=== PATIENT | male | born 1955 | race American Indian/Alaskan Native ===

== ENCOUNTER 2016-09-02 20:22 | Observation (INO) | payer MEDICARE ==
--- NOTE | 2016-09-02 21:02 | ED PDOC ---
Arrival/HPI - General Chief Complaint: Dizziness/Lightheaded Time Seen by Provider: 09/02/16 20:32 Historian: Patient - History of Present Illness Narrative History of Present Illness (Text): 09/02/16 20:58 Derek Lucas is a 61 year old male, whose past medical history includes hypertension, hyperlipidemia, cerebral aneurysm s/p surgery, and HIV, who presents to the ED complaining of dizziness today. Patient also with associated unsteady gait and near syncopal at times. Patient recently visiting from [place] and states he ran out of his blood pressure medication. Patient states he regularly takes Lisinopril and Carvedilol but does not know of any of the doses. Patient denies any headache, vision changes, chest pain, shortness of breath, abdominal pain, nausea, vomiting, diarrhea, back pain, neck pain, or any other complaints. Time/Duration: Other (today) Symptom Onset: Gradual Symptom Course: Unchanged Activities at Onset: Rest, Light Context: Home Past Medical History - Provider Review Nursing Documentation Reviewed: Yes - Infectious Disease Hx of Infectious Diseases: None - Cardiac Hx Hypertension: Yes Hx Internal Defibrillator: Yes - Pulmonary Hx Respiratory Disorders: No - Neurological Hx Neurological Disorder: No Other/Comment: anurysm on the head. - HEENT Hx HEENT Disorder: Yes (eye glasses) - Renal Hx Renal Disorder: No - Endocrine/Metabolic Hx Diabetes Mellitus Type 2: Yes - Integumentary Hx Dermatological Disorder: No - Musculoskeletal/Rheumatological Hx Musculoskeletal Disorders: No - Gastrointestinal Hx Gastroesophageal Reflux: Yes - Genitourinary/Gynecological Hx Genitourinary Disorders: No - Psychiatric Hx Psychophysiologic Disorder: No Hx Substance Use: No - Surgical History Other/Comment: defibrilator - Anesthesia Hx Anesthesia: No Hx Anesthesia Reactions: No Hx Malignant Hyperthermia: No Family/Social History - Physician Review Nursing Documentation Reviewed: Yes Family/Social History: No Known Family HX Smoking Status: Never Smoked Hx Alcohol Use: No Hx Substance Use: No Allergies/Home Meds Allergies/Adverse Reactions: Allergies No Known Allergies Allergy (Verified 09/02/16 20:29) Review of Systems - Physician Review All systems were reviewed & negative as marked: Yes - Review of Systems Constitutional: Normal. absent: Fevers Eyes: Normal ENT: Normal Respiratory: Normal. absent: SOB, Cough Cardiovascular: Normal. absent: Chest Pain Gastrointestinal: Normal. absent: Abdominal Pain, Diarrhea, Nausea, Vomiting Genitourinary Male: Normal. absent: Dysuria, Frequency, Hematuria, Urinary Output Changes Musculoskeletal: Normal. absent: Back Pain, Neck Pain Skin: Normal. absent: Rash Neurological: Dizziness, Gait Changes (+unsteady gait), Other (+near-syncope). absent: Headache Endocrine: Normal Hemo/Lymphatic: Normal Psychiatric: Normal Physical Exam Vital Signs Reviewed: Yes Vital Signs Temp Pulse Resp BP Pulse Ox 09/02/16 23:27 77 156/108 H 09/02/16 22:48 156/108 H 09/02/16 21:28 70 169/104 H 09/02/16 21:27 74 169/104 H 09/02/16 20:51 98.8 F 82 20 163/104 H 100 09/02/16 20:41 98 F 79 17 163/104 H 100 Temperature: Afebrile Blood Pressure: Hypertensive Pulse: Regular Respiratory Rate: Normal Appearance: Positive for: Well-Appearing, Non-Toxic, Comfortable Pain Distress: None Mental Status: Positive for: Alert and Oriented X 3 Finger Stick Blood Glucose: 95 - Systems Exam Head: Present: Atraumatic, Normocephalic Pupils: Present: PERRL Extroacular Muscles: Present: EOMI Conjunctiva: Present: Normal Mouth: Present: Moist Mucous Membranes Neck: Present: Normal Range of Motion Respiratory/Chest: Present: Clear to Auscultation, Good Air Exchange, Other ( Left anterior chest wall defibrillator). No: Respiratory Distress, Accessory Muscle Use Cardiovascular: Present: Regular Rate and Rhythm, Normal S1, S2. No: Murmurs Abdomen: Present: Normal Bowel Sounds. No: Tenderness, Distention, Peritoneal Signs Back: Present: Normal Inspection Upper Extremity: Present: Normal Inspection. No: Cyanosis, Edema Lower Extremity: Present: Normal Inspection. No: Edema Neurological: Present: GCS=15, CN II-XII Intact, Speech Normal, Motor Func Grossly Intact, Normal Sensory Function, Other (Slow mentation at times) Skin: Present: Warm, Dry, Normal Color. No: Rashes Psychiatric: Present: Alert, Oriented x 3, Normal Insight, Normal Concentration Medical Decision Making ED Course and Treatment: 09/02/16 20:58 Impression: 61 y/o male c/o dizziness, unsteady gait, and near-syncope today. Plan: -- CT Head w/o contrast -- EKG -- Chest X-ray -- Labs, cardiac enzymes -- Coreg -- Carvedilol -- Reassess and disposition Progress Notes: Reviewed EKG, NSR at 75 bpm. 1st degree AV block. Occasional PVC. Non-specific ST/T wave changes. 09/02/16 22:22 Reviewed radiology, CXR shows no active disease. CT Head shows: No acute findings. 09/02/16 23:[address] Foley, covering for Dr. Ibarra, who requests pt go to hospitalist service. 09/03/16 00:[address] Richardson, who is aware and agrees with plan. Accepts pt in to hospitalist service. Pt will go to Telemetry observation for near-syncope and intractable dizziness. vice president payment notified. Pt is no acute distress. Discussed results and hospital observation plan with pt and family, who is aware and verbalizes understanding. - Lab Interpretations Lab Results: 09/02/16 20:44 09/02/16 20:44 Lab Results 09/02/16 20:44: WBC 5.0, RBC 4.52, Hgb 14.3, Hct 41.3 L, MCV 91.4, MCH 31.6, MCHC 34.6, RDW 15.4 H, Plt Count 129, MPV 11.6 H, PT 12.4 H, INR 1.15 H, APTT 29.2, Sodium 138, Potassium 3.7, Chloride 102, Carbon Dioxide 22, Anion Gap 18, BUN 8, Creatinine 0.7, Est GFR ( Amer) > 60, Est GFR (Non-Af Amer) > 60, Random Glucose 116 H, Calcium 9.3, Total Bilirubin 1.2, AST 44, ALT 28, Alkaline Phosphatase 81, Lactate Dehydrogenase 568, Total Creatine Kinase 165, Troponin I 0.01, Total Protein 9.8 H, Albumin 4.3, Globulin 5.5, Albumin/ Globulin Ratio 0.8 L I have reviewed the lab results: Yes - RAD Interpretation Narrative RAD Interpretations (Text): CXR shows no active disease. CT Head shows: Aneurysm coil left suprasellar cistern producing artifact. Encephalomalacia left frontal lobe. Atrophy and chronic small vessel ischemic disease. No intracranial hemorrhage. No intracranial edema. No evidence of acute infarct. The sinuses and mastoid air cells are clear. IMPRESSION: No acute findings. Radiology Orders: 09/02/16 21:08 HEAD W/O CONTRAST [CT] Stat CHEST PORTABLE [RAD] Stat Land Conservation Specialist: ED Physician, Radiologist - EKG Interpretation EKG Interpretation (Text): EKG: Ordered, reviewed, and independently interpreted the EKG. Rate : 75 BPM Rhythm : NSR Interpretation : 1st degree AV block. Occasional PVC. Non-specific ST/T wave changes. Comparison : No previous EKG for comparison. Interpreted by ED Physician: Yes Type: 12 lead EKG - Medication Orders Current Medication Orders: Discontinued Medications Carvedilol (Coreg) 6.25 mg PO STAT STA Stop: 09/02/16 21:10 Last Admin: 09/02/16 21:27 Dose: 6.25 MG MAR Pulse and Blood Pressure Document 09/02/16 21:27 [facility] (Rec: 09/02/16 21:28 [place] [id number]) Pulse Pulse Rate (60-90 beats/min) 74 Blood Pressure Blood Pressure (100/60-150/90 mm Hg) 169/104 Clonidine HCl (Catapres) 0.1 mg PO STAT STA Stop: 09/02/16 23:08 Last Admin: 09/02/16 23:27 Dose: 0.1 MG MAR Pulse and Blood Pressure Document 09/02/16 23:27 [facility] (Rec: 09/02/16 23:27 [place] [id number]) Pulse Pulse Rate (60-90 beats/min) 77 Blood Pressure Blood Pressure (100/60-150/90 mm Hg) 156/108 Lisinopril (Zestril) 5 mg PO STAT STA Stop: 09/02/16 21:10 Last Admin: 09/02/16 21:28 Dose: 5 MG MAR Pulse and Blood Pressure Document 09/02/16 21:28 [facility] (Rec: 09/02/16 21:28 [place] [id number]) Pulse Pulse Rate (60-90 beats/min) 70 Blood Pressure Blood Pressure (100/60-150/90 mm Hg) 169/104 - Scribe Statement The provider has reviewed the documentation as recorded by the Leeannibcaroline Heaton Provider Attestation: All medical record entries made by the Scribe were at my direction and personally dictated by me. I have reviewed the chart and agree that the record accurately reflects my personal performance of the history, physical exam, medical decision making, and the department course for this patient. I have also personally directed, reviewed, and agree with the discharge instructions and disposition Disposition/Present on Arrival - Present on Arrival Any Indicators Present on Arrival: No History of DVT/PE: No History of Uncontrolled Diabetes: No Urinary Catheter: No History of Decub. Ulcer: No History Surgical Site Infection Following: None - Disposition Have Diagnosis and Disposition been Completed?: Yes Diagnosis: Pre-syncope, Dizziness Disposition: HOSPITALIZED Disposition Time: 00:48 Patient Plan: Observation Condition: STABLE
[2016-09-02 21:31] LABS: HEMATOCRIT 41.3 % (42.0-52.0); MEAN CELL VOLUME 91.4 fL (80.0-105.0); MEAN CORPUSCULAR HEMOGLOBIN 31.6 pg (25.0-35.0); MEAN CORPUSCULAR HGB CONC 34.6 g/dl (31.0-37.0); MEAN PLATELET VOLUME 11.6 fl (7.0-11.0); RED CELL DISTRIBUTION WIDTH 15.4 % (11.5-14.5)
[2016-09-02 21:38] LABS: ALB/GLOB RATIO 0.8 (1.1-1.8); ALKALINE PHOSPHATASE 81 U/L (38-133); ALT/SGPT 28 U/L (7-56); AST/SGOT 44 U/L (15-59); BILIRUBIN,TOTAL 1.2 mg/dL (0.2-1.3); BLOOD UREA NITROGEN 8 mg/dL (7-21); CALCIUM 9.3 mg/dL (8.4-10.5); CARBON DIOXIDE 22 mmol/L (21-33); CHLORIDE 102 mmol/L (98-107); GFR AFRICAN-AMERICAN > 60; GLUCOSE,RANDOM 116 mg/dL (70-110); POTASSIUM 3.7 mmol/L (3.6-5.0); SODIUM 138 mmol/L (132-148); TOTAL PROTEIN 9.8 g/dL (5.8-8.3)
[2016-09-02 21:44] LABS: INR 1.15 (0.93-1.08); PARTIAL THROMBOPLASTIN TIME 29.2 Seconds (23.7-30.8)
[2016-09-02 21:57] LABS: TROPONIN I 0.01 ng/mL
--- NOTE | 2016-09-02 22:21 | CT ---
EXAM: CT Head Without Intravenous Contrast CLINICAL HISTORY: 61 years old, male; Signs and symptoms; Dizziness; Additional info: Dizzy TECHNIQUE: Axial computed tomography images of the head/brain without intravenous contrast. This CT exam was performed using one or more of the following dose reduction techniques: automated exposure control, adjustment of the mA and/or kV according to patient size, and/or use of iterative reconstruction technique. EXAM DATE/TIME: 09/02/2016 9:08 PM COMPARISON: No relevant prior studies available. FINDINGS: Aneurysm coil left suprasellar cistern producing artifact. Encephalomalacia left frontal lobe. Atrophy and chronic small vessel ischemic disease. No intracranial hemorrhage. No intracranial edema. No evidence of acute infarct. The sinuses and mastoid air cells are clear. IMPRESSION: No acute findings.
[2016-09-03 00:59] VITALS: BMI 43.9
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
[2016-09-03 06:12] VITALS: O2SAT 98
[2016-09-03] MEDS ORDERED: Pantoprazole 40 mg EC Tab PO SCH (06:30)
--- NOTE | 2016-09-03 08:47 | RAD ---
HISTORY: dizzy COMPARISON: No prior. FINDINGS: LUNGS: No active pulmonary disease. PLEURA: No significant pleural effusion identified, no pneumothorax apparent. CARDIOVASCULAR: Normal. OSSEOUS STRUCTURES: No significant abnormalities. VISUALIZED UPPER ABDOMEN: Normal. OTHER FINDINGS: Single lead pacemaker IMPRESSION: No active disease.
--- NOTE | 2016-09-03 11:58 | CP.PCM.DIS ---
<CliffAnmol - Last Filed: 09/08/16 02:27> Provider - Provider Date of Admission: 09/03/16 00:32 Attending physician: Cliff Hdez MD Primary care physician: Pilar Profile Required Time Spent in preparation of Discharge (in minutes): 40 Diagnosis - Discharge Diagnosis (1) Dizziness Status: Acute (2) Hypertensive urgency Status: Resolved (3) Gout Status: Chronic (4) HIV (human immunodeficiency virus infection) Status: Chronic Hospital Course - Lab Results Lab Results: Most Recent Lab Values WBC 5.0 10^3/ul (4.5-11.0) 09/02/16 20:44 RBC 4.52 10^6/uL (3.5-6.1) 09/02/16 20:44 Hgb 14.3 gm/dL (14.0-18.0) 09/02/16 20:44 Hct 41.3 % (42.0-52.0) L 09/02/16 20:44 MCV 91.4 fL (80.0-105.0) 09/02/16 20:44 MCH 31.6 pg (25.0-35.0) 09/02/16 20:44 MCHC 34.6 g/dl (31.0-37.0) 09/02/16 20:44 RDW 15.4 % (11.5-14.5) H 09/02/16 20:44 Plt Count 129 10^3/uL (120.0-450.0) 09/02/16 20:44 MPV 11.6 fl (7.0-11.0) H 09/02/16 20:44 PT 12.4 Seconds (9.9-11.8) H 09/02/16 20:44 INR 1.15 (0.93-1.08) H 09/02/16 20:44 APTT 29.2 Seconds (23.7-30.8) 09/02/16 20:44 Sodium 138 mmol/L (132-148) 09/02/16 20:44 Potassium 3.7 mmol/L (3.6-5.0) 09/02/16 20:44 Chloride 102 mmol/L (98-107) 09/02/16 20:44 Carbon Dioxide 22 mmol/L (21-33) 09/02/16 20:44 Anion Gap 18 (10-20) 09/02/16 20:44 BUN 8 mg/dL (7-21) 09/02/16 20:44 Creatinine 0.7 mg/dL (0.5-1.4) 09/02/16 20:44 Est GFR ( Amer) > 60 09/02/16 20:44 Est GFR (Non-Af Amer) > 60 09/02/16 20:44 Random Glucose 116 mg/dL (70-110) H 09/02/16 20:44 Calcium 9.3 mg/dL (8.4-10.5) 09/02/16 20:44 Total Bilirubin 1.2 mg/dL (0.2-1.3) 09/02/16 20:44 AST 44 U/L (15-59) 09/02/16 20:44 ALT 28 U/L (7-56) 09/02/16 20:44 Alkaline Phosphatase 81 U/L (38-133) 09/02/16 20:44 Lactate Dehydrogenase 568 U/L (333-699) 09/02/16 20:44 Total Creatine Kinase 165 U/L (35-230) 09/02/16 20:44 Troponin I 0.02 ng/mL D 09/03/16 03:40 Total Protein 9.8 g/dL (5.8-8.3) H 09/02/16 20:44 Albumin 4.3 g/dL (3.0-4.8) 09/02/16 20:44 Globulin 5.5 gm/dL 09/02/16 20:44 Albumin/Globulin Ratio 0.8 (1.1-1.8) L 09/02/16 20:44 - Hospital Course Hospital Course: 61 year old male with past medical hx HIV, defibrillator, HLD, gout, HTN, brain aneurysm presenting with cc dizziness x 2 days. Pt has not taken his antihypertensive meds for several days as he is visiting from [place] and expected to be home by now but his flights were cancelled. He left his hypertensive medications at home. He started having dizziness on as he was lying in bed. He stood up and felt unsteady. He cannot say any particular trigger, only that he felt this way about 3 months ago, also after not taking his blood pressure meds. He also reports decreased po intake over the last couple of days. The dizziness got worse today and he decided to come in. He denies LOC. He denies chest pain, sob, fevers, chills, vomiting, diarrhea, cough , hematuria, dysuria, bloody BMs. The last time he had a stress test was under a year ago. He did not take anything for his symptoms. In the ED, patient was found to have BP of 163/104, was given coreg. CXR and CT head were unremarkable. EKG showed NSR at 75 bpm. 1st degree AV block. Occasional PVC. Non -specific ST/T wave changes.Patient was then admitted to the hospital for further observation. Cardiology and neurology were consulted, they recommended patient to resume his hypertensive medications. Patient's BP improved overnight and continue to improve through the day (122/73 on discharge). Patient was educated on the importance of taking his medications on time. The discharge plan and follow ups were extensively discussed with the patient. At this time, after discussion of all issues, the patient was deemed medically fit for discharge. - Date & Time of H&P Date of H&P: 09/03/16 Time of H&P: 01:01 Discharge Exam - Head Exam Head Exam: ATRAUMATIC, NORMAL INSPECTION, NORMOCEPHALIC - Eye Exam Eye Exam: EOMI, Normal appearance - ENT Exam ENT Exam: Mucous Membranes Moist - Neck Exam Neck exam: Normal Inspection - Respiratory Exam Respiratory Exam: Clear to PA & Lateral, NORMAL BREATHING PATTERN. absent: Respiratory Distress - Cardiovascular Exam Cardiovascular Exam: REGULAR RHYTHM, RRR, +S1, +S2 - GI/Abdominal Exam GI & Abdominal Exam: Normal Bowel Sounds, Soft. absent: Bruit - Extremities Exam Extremities exam: normal capillary refill, normal inspection, pedal pulses present - Back Exam Back exam: NORMAL INSPECTION - Neurological Exam Neurological exam: Alert, Oriented x3 - Psychiatric Exam Psychiatric exam: Normal Affect, Normal Mood - Skin Skin Exam: Dry, Intact, Normal Color, Warm Discharge Plan - Discharge Medications Prescriptions: Carvedilol [Coreg] 12.5 mg PO BID #28 tab Atorvastatin [Lipitor] 10 mg PO DIN #14 tab Lisinopril [Zestril] 10 mg PO DAILY #14 tab - Follow Up Plan Condition: GOOD Disposition: HOME/ ROUTINE Instructions: How To Wash Your Hands (DC), Hypertension (DC), Near Syncope (ED) , Dizziness (GEN) Additional Instructions: Patient was instructed to follow up with his PMD and ID specialist back in [place] within 1 week Mediation compliance is strongly advised Educated patient on subtle position change to avoid dizziness episodes Patient was instructed monitor his BP often Go to the nearest ED if symptoms return or worsen Referrals: [facility], [Non-Staff] - Follow up with primary <Cliff Hdez MD - Last Filed: 09/11/16 12:18> Provider - Provider Date of Admission: 09/03/16 00:32 Attending physician: Cliff Hdez MD Primary care physician: NO PRIMARY CARE PROVIDER Hospital Course - Lab Results Lab Results: Most Recent Lab Values WBC 5.0 10^3/ul (4.5-11.0) 09/02/16 20:44 RBC 4.52 10^6/uL (3.5-6.1) 09/02/16 20:44 Hgb 14.3 gm/dL (14.0-18.0) 09/02/16 20:44 Hct 41.3 % (42.0-52.0) L 09/02/16 20:44 MCV 91.4 fL (80.0-105.0) 09/02/16 20:44 MCH 31.6 pg (25.0-35.0) 09/02/16 20:44 MCHC 34.6 g/dl (31.0-37.0) 09/02/16 20:44 RDW 15.4 % (11.5-14.5) H 09/02/16 20:44 Plt Count 129 10^3/uL (120.0-450.0) 09/02/16 20:44 MPV 11.6 fl (7.0-11.0) H 09/02/16 20:44 PT 12.4 Seconds (9.9-11.8) H 09/02/16 20:44 INR 1.15 (0.93-1.08) H 09/02/16 20:44 APTT 29.2 Seconds (23.7-30.8) 09/02/16 20:44 Sodium 138 mmol/L (132-148) 09/02/16 20:44 Potassium 3.7 mmol/L (3.6-5.0) 09/02/16 20:44 Chloride 102 mmol/L (98-107) 09/02/16 20:44 Carbon Dioxide 22 mmol/L (21-33) 09/02/16 20:44 Anion Gap 18 (10-20) 09/02/16 20:44 BUN 8 mg/dL (7-21) 09/02/16 20:44 Creatinine 0.7 mg/dL (0.5-1.4) 09/02/16 20:44 Est GFR ( Amer) > 60 09/02/16 20:44 Est GFR (Non-Af Amer) > 60 09/02/16 20:44 Random Glucose 116 mg/dL (70-110) H 09/02/16 20:44 Calcium 9.3 mg/dL (8.4-10.5) 09/02/16 20:44 Total Bilirubin 1.2 mg/dL (0.2-1.3) 09/02/16 20:44 AST 44 U/L (15-59) 09/02/16 20:44 ALT 28 U/L (7-56) 09/02/16 20:44 Alkaline Phosphatase 81 U/L (38-133) 09/02/16 20:44 Lactate Dehydrogenase 568 U/L (333-699) 09/02/16 20:44 Total Creatine Kinase 165 U/L (35-230) 09/02/16 20:44 Troponin I 0.01 ng/mL D 09/03/16 12:20 Total Protein 9.8 g/dL (5.8-8.3) H 09/02/16 20:44 Albumin 4.3 g/dL (3.0-4.8) 09/02/16 20:44 Globulin 5.5 gm/dL 09/02/16 20:44 Albumin/Globulin Ratio 0.8 (1.1-1.8) L 09/02/16 20:44 Attending/Attestation - Attestation I have personally seen and examined this patient.: Yes I have fully participated in the care of the patient.: Yes I have reviewed all pertinent clinical information, including history, physical exam and plan: Yes Notes (Text): Patient was seen and examined with medical fee clerk .Agreed with resident assessment and plan. Patient dizziness was due to non compliance with anti hypertensive medication.He was started on coreg and lisinopril and his blood pressure improved.His dizzines has improved.He is ambulatory.The issue of compliance with anti hypertensive medication was discussed in detail.Patient will be discharged home and will follow up with PCP Management plan was discussed in detail with patient Education was provided.
--- NOTE | 2016-09-03 12:16 | CARD ---
APPROVED REPORT EKG Measurement Heart [id number] MD [id number] <Conclusion> Sinus rhythm with 1st degree AV block with occasional premature ventricular complexes Otherwise normal ECG
[2016-09-03 13:39] VITALS: BP 122/73; PULSE 74; RESP 16; TEMP 98.5
--- NOTE | 2016-09-03 14:14 | CON ---
DATE: 09/03/2016 CHIEF COMPLAINT: Dizziness. HISTORY OF PRESENTING ILLNESS: A 61-year-old man with history of HIV, defibrillator, hyperlipidemia, hypertension, gout, history of brain aneurysm. He has not been taking his antihypertensives. He west s come from [place] and he is trying to go back. He said he stood up, felt unsteady, felt like dizzi ness and a spinning sensation of the room as well as lightheadedness. No loss of consciousness, no w eakness, no focal paresthesias in the extremities. Currently, he is doing much better. CAT scan awilda wed no acute intracranial abnormality. He had elevated systolic and diastolic blood pressures. PAST MEDICAL HISTORY: HIV, defibrillator, hyperlipidemia, hypertension, gout, brain aneurysm. PAST SURGICAL HISTORY: Defibrillator placement, coil for aneurysm. ALLERGIES: No known drug allergies. FAMILY HISTORY: As per the family. HOME MEDICATIONS: HIV meds, lisinopril, Lipitor, allopurinol, Ambien, Remeron, Coreg. SOCIAL HISTORY: Denies any smoking or drinking. 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 Lives in [place]. 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 Lives with his girlfriend. REVIEW OF SYSTEMS: A 14-point is negative except for in the HPI. PHYSICAL EXAMINATION: VITAL SIGNS: Temperature 98.5, pulse rate 74, blood pressure 122/73, respiratory rate 16, oxygen 98% via room air. GENERAL: The patient is sitting up in bed, in no acute distress. HEENT: Atraumatic, normocephalic. PERRLA. Extraocular muscles intact. NECK: Supple, no JVD, no adenopathy noted. LUNGS: Clear to auscultation. No adventitious sounds. HEART: S1, S2, normal rate and rhythm. No murmurs, rubs, or gallops. ABDOMEN: Soft, nontender, nondistended. Bowel sounds are present. EXTREMITIES: No clubbing, no cyanosis. Peripheral pulses 2+ felt bilaterally. NEUROLOGIC: The patient is alert, oriented to person, place, month and year. Speech is fluent, with out any errors. Cranial nerves II-XII are intact. MOTOR: Slightly cachectic looking, but moves all extremities equally, slight increased tone througho ut. SENSORY: Decreased light touch and pinprick up to the calves bilaterally. Decreased vibration of th e toes. DTRs are 2+ throughout. Proprioception is intact. COORDINATION: [id number] intact. GAIT: Deferred for now. LABORATORIES: Sodium is 138, potassium 3.7, chloride of 102, carbon dioxide 22, BUN of 8, creatinine 0.7, random glucose 116. ASSESSMENT AND PLAN: This is a 61-year-old man with past medical history of human immunodeficiency v irus, defibrillator, brain aneurysm, status post coil, hyperlipidemia, hypertension, gout, who presen tyron with dizziness for the past 2 days. He has not been taking his antihypertensive medications. Di zziness is likely secondary to hypertensive urgency since he had elevated systolic and diastolic bloo d pressures. Now, it is corrected. At this time, recommend: 1. Salt restriction. 2. Resume his antihypertensive meds and discussed the need that he needs to be taking his medication s daily. Otherwise, he will get risk for stroke. 3. Continue his human immunodeficiency virus medications. 4. He is clinically stable for discharge at this time since he is neurologically intact. Thank you for this consult. Abiodun Granados MD cc: [id number] TT: 09/03/2016 14:13:37 Confirmation # [id number] Dictation # [id number]
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
--- NOTE | 2016-09-04 16:36 | CARD ---
APPROVED REPORT EKG Measurement Heart [id number] <Conclusion> Sinus rhythm with 1st degree AV block T wave abnormality, consider lateral ischemia Prolonged QT Abnormal ECG
== END 2016-09-03 16:31 | disposition home or self-care (01) ==
LOC: ED 20:22 → ERH 09-03 00:32 → 2RNO 09-03 01:49
PROVIDERS: ADMIT Internal Medicine; ATTEND Internal Medicine
DX: R42 Dizziness and giddiness (principal); R55 Syncope and collapse; R26.81 Unsteadiness on feet; Z21 Asymptomatic human immunodeficiency virus [HIV] infection status; I10 Essential (primary) hypertension; E78.5 Hyperlipidemia, unspecified; M10.9 Gout, unspecified; I16.0 Hypertensive urgency; I25.10 Atherosclerotic heart disease of native coronary artery without angina pectoris; I42.7 Cardiomyopathy due to drug and external agent; K21.9 Gastro-esophageal reflux disease without esophagitis; Z85.72 Personal history of non-Hodgkin lymphomas; Z95.810 Presence of automatic (implantable) cardiac defibrillator; Z82.5 Family history of asthma and other chronic lower respiratory diseases
CPT/HCPCS: 36415; 70450; 71010; 80053; 82550; 83615; 84484; 85027; 85610; 85730; 93005; 97161; 97530; 99285; G0378; G8978; G8979